=== PATIENT | female | born 1990 | race Caucasian/White ===

== ENCOUNTER 2016-06-01 21:38 | Emergency (ER) | payer OTHER ==
--- NOTE | 2016-06-01 23:39 | ED ORDER SUMMARY ---
..... Patient: EMELYN MISHRA OrderSheet [facility] VisitID: [id number] [address] [place] [address] 25y, F Registration Date/Time: 06/01/2016 ORDER SHEET Weight: 72.5 kg (stated) Allergies: None GENERAL ORDERS: Ankle 3 or 4V Right Urgent (23:38 06/01/2016 Lucía P.A.-C) (Cancelled: Other23:38 EKsilaslegeneva P.A.-C) Splint (LE) (Right) (BOOT) (23:40 06/01/2016 Lucía P.A.-C) (23:51 Becca ER Red Lead Burner) MEDICATION ORDERS: IV FLUIDS: ORDER SHEET NOTES: [Electronically signed by Jaye Archuleta P.A.-C (00:49 06/02/2016)] [Electronically signed by Jer Crystal R.N. (01:39 06/02/2016)] [Electronically locked/signed by Jer Crystal R.N. (01:39 06/02/2016)]
--- NOTE | 2016-06-01 23:39 | ED ORDER SUMMARY ---
..... Patient: EMELYN MISHRA OrderSheet [facility] VisitID: [id number] [address] [place] [address] 25y, F Registration Date/Time: 06/01/2016 ORDER SHEET Weight: 72.5 kg (stated) Allergies: None GENERAL ORDERS: Ankle 3 or 4V Right Urgent (23:38 06/01/2016 Lucía P.A.-C) (Cancelled: Other23:38 EKsilaslegeneva P.A.-C) Splint (LE) (Right) (BOOT) (23:40 06/01/2016 Lucía P.A.-C) (23:51 Becca ER Compressor Repairer) MEDICATION ORDERS: IV FLUIDS: ORDER SHEET NOTES: [Electronically signed by Jaye Archuleta P.A.-C (00:49 06/02/2016)] [Electronically signed by Jer Crystal R.N. (01:39 06/02/2016)] [Electronically locked/signed by Jer Crystal R.N. (01:39 06/02/2016)]
--- NOTE | 2016-06-01 23:39 | ED NURSING NOTES ---
Clinical Report - Nurses [facility] [place] [address] 06/01/2016 21:40 [id number] Triage time 22:17. Chief Complaint: INJURY TO RIGHT ANKLE. --22:22 Saniya Freitas R.N. Weight: 72.5 kg stated. Height/Length: 64 inches. BMI: 27.5. --22:21 Saniya Freitas R.N. Medications 1 Oral, qday. --22:21 Saniya Freitas R.N. Allergies None. --00:18 Jer Crystal R.N. History Arrived by private vehicle. Historian: patient. Accompanied by spouse. This occurred today. Occurred ([place] Mechanism of injury: sustained an external rotation injury while walking. She has had trouble walking. PAST MEDICAL HX: Tetanus status: up-to-date. Immunizations: up-to-date. Currently : 22 weeks. In 2nd trimester. SOCIAL HX: Never smoker. No alcohol use or drug use. --22:22 Saniya Freitas R.N. PHYSICAL ASSESSMENT CVS: Pulses: right dorsalis pedis 3+. EXTREMITIES: Limited ROM present (due to pain). Capillary refill is less than 2 seconds in the extremities. Extremity pulses are within normal limits. She was unable to bear weight. (able to bear weight with pain). Neuro-vascular status intact to the extremity. Right ankle: tenderness and swelling (+pedal pulse marked). SKIN: Skin intact. Skin is warm and dry. --23:35 Jer Crystal R.N. To room via wheelchair. Patient gowned. GENERAL / NEURO / PSYCH: Oriented X 4. Alert. --23:35 Jer Crystal R.N. NURSING PROGRESS NOTES ( lunar boot applied to right foot). --00:09 Shaggy Pérez, ER Data Quality Consultant ( allergies not addressed during triage- Meri copeland who did the triage still in dept and reports no allergies-). --00:19 Jer Crystal R.N. DISPOSITION / DISCHARGE Departure time: 00:09. Condition at departure: improved. No learning barriers present. Discharge instructions provided and reviewed with the patient. Reviewed medication(s). Patient verbalized understanding. Written instructions provided in Khmer. The patient was discharged by the physician shop assistant. She was discharged home and accompanied by spouse. She left the Emergency Department ambulatory and via private vehicle. Spouse driving. --00:13 Jer Crystal R.N. 00:12 06/02/16. BP: 114/74. HR: 76. RR: 17. O2 saturation: 100%. Temp: 98.1 F. Pain level now: 05/22. --00:13 Jer Crystal R.N. Locked/Released at 06/02/2016 1:39 by Jer Crystal R.N.
--- NOTE | 2016-06-01 23:39 | ED CLINICAL REPORT ---
Clinical Report - Physicians/Mid Levels [facility] [address] [place] [address] 06/01/2016 21:40 Patient: EMELYN MISHRA Time Seen: 2340. Arrived- By private vehicle. Historian- patient. HISTORY OF PRESENT ILLNESS Chief Complaint: Injury to the right ankle. The injury happened today. The patient sustained a twisting injury. Occurred at home. (She presents to the emergency department, with a twisting ankle injury which or purpura throughout, she has been ambulatory since him pain with movement, however. Is improved. She reports being currently. Denies any to her abdomen. Denies head injury. 2nd trimester .). REVIEW OF SYSTEMS No tingling. She has no pain on weight bearing. All systems otherwise negative, except as recorded above. PAST HISTORY The patient has not had a prior injury to the same area. Problems: . Medications: 1 Oral, qday. Allergies: None. SOCIAL HISTORY Never smoker. No alcohol use or drug use. PHYSICAL EXAM Vital Signs: 06/02/2016 00:12 BP: 114/74. HR: 76. RR: 17. O2 saturation: 100%. Temp: 98.1 F. Pain level now: 4/10. Appearance: Alert. Head: Head atraumatic. ENT: Ears normal. Nose normal. CVS: Normal heart rate and rhythm. Heart sounds normal. Respiratory: No respiratory distress. Breath sounds normal. No decreased air movement or chest wall injury. Abdomen: No visible injury. Soft. Skin: Skin intact. Skin warm. Extremities: Foot/ankle soft-tissue tenderness. Right posterior ankle. No tenderness or swelling. Right lateral ankle: mild tenderness and swelling of the lateral ligaments. No ecchymosis or foreign body. No limitation in ROM. [place] ANKLE RULES: There is no bony tenderness at the posterior edge or tip of the lateral malleolus or medial malleolus or The patient is able to bear weight (at least four steps) immediately after injury or in the E.D. No foot injury. Gait: No limping gait. Neuro, Vascular and Tendons: Vascular status intact. Motor intact. Neuro: Oriented X 3. PROGRESS AND PROCEDURES PROCEDURES (R. ankle boot: ns intact post application). Course of Care: Negative Vaibhav Zelaya. Patient able to ambulate with multiple steps, discussed option for radiology, will alternative the time, although I cannot guarantee her percent no fracture, this is minimal possibility that she is able to ambulate, has good range of motion, flexion and good strength. Twisting force injury. Patient is stable. Patient/family counseled. Disposition: Discharged. CLINICAL IMPRESSION Sprain of the tibiofibular ligament of the left ankle. INSTRUCTIONS Apply ice. Elevate affected areas above chest level. You may walk and bear weight as tolerated. OTC Medications: Motrin IB 200 mg (available over the counter): take 4 orally every 8 hours for 5 days, as needed for pain Follow-up: Follow up with your doctor in eight days. Follow-up with: Chris Nagel DPM, Podiatry, , [facility], [address] [place] [address], [address] [address] Follow up in eight days. (Electronically signed by Jaye Archuleta P.A.-C 06/02/2016 0:49)
--- NOTE | 2016-06-01 23:39 | ED CLINICAL REPORT ---
Clinical Report - Physicians/Mid Levels [facility] [address] [place] [address] 06/01/2016 21:40 Patient: EMELYN MISHRA Time Seen: 2340. Arrived- By private vehicle. Historian- patient. HISTORY OF PRESENT ILLNESS Chief Complaint: Injury to the right ankle. The injury happened today. The patient sustained a twisting injury. Occurred at home. (She presents to the emergency department, with a twisting ankle injury which or purpura throughout, she has been ambulatory since him pain with movement, however. Is improved. She reports being currently. Denies any to her abdomen. Denies head injury. 2nd trimester .). REVIEW OF SYSTEMS No tingling. She has no pain on weight bearing. All systems otherwise negative, except as recorded above. PAST HISTORY The patient has not had a prior injury to the same area. Problems: . Medications: 1 Oral, qday. Allergies: None. SOCIAL HISTORY Never smoker. No alcohol use or drug use. PHYSICAL EXAM Vital Signs: 06/02/2016 00:12 BP: 114/74. HR: 76. RR: 17. O2 saturation: 100%. Temp: 98.1 F. Pain level now: 4/10. Appearance: Alert. Head: Head atraumatic. ENT: Ears normal. Nose normal. CVS: Normal heart rate and rhythm. Heart sounds normal. Respiratory: No respiratory distress. Breath sounds normal. No decreased air movement or chest wall injury. Abdomen: No visible injury. Soft. Skin: Skin intact. Skin warm. Extremities: Foot/ankle soft-tissue tenderness. Right posterior ankle. No tenderness or swelling. Right lateral ankle: mild tenderness and swelling of the lateral ligaments. No ecchymosis or foreign body. No limitation in ROM. [place] ANKLE RULES: There is no bony tenderness at the posterior edge or tip of the lateral malleolus or medial malleolus or The patient is able to bear weight (at least four steps) immediately after injury or in the E.D. No foot injury. Gait: No limping gait. Neuro, Vascular and Tendons: Vascular status intact. Motor intact. Neuro: Oriented X 3. PROGRESS AND PROCEDURES PROCEDURES (R. ankle boot: ns intact post application). Course of Care: Negative Vaibhav Zelaya. Patient able to ambulate with multiple steps, discussed option for radiology, will alternative the time, although I cannot guarantee her percent no fracture, this is minimal possibility that she is able to ambulate, has good range of motion, flexion and good strength. Twisting force injury. Patient is stable. Patient/family counseled. Disposition: Discharged. CLINICAL IMPRESSION Sprain of the tibiofibular ligament of the left ankle. INSTRUCTIONS Apply ice. Elevate affected areas above chest level. You may walk and bear weight as tolerated. OTC Medications: Motrin IB 200 mg (available over the counter): take 4 orally every 8 hours for 5 days, as needed for pain Follow-up: Follow up with your doctor in eight days. Follow-up with: Chris Nagel DPM, Podiatry, , [facility], [address] [place] [address], [address] [address] Follow up in eight days. (Electronically signed by Jaye Archuleta P.A.-C 06/02/2016 0:49)
--- NOTE | 2016-06-01 23:39 | ED NURSING NOTES ---
Clinical Report - Nurses Located Within [facility] [place] [address] 06/01/2016 21:40 [id number] Triage time 22:17. Chief Complaint: INJURY TO RIGHT ANKLE. --22:22 Saniya Freitas R.N. Weight: 72.5 kg stated. Height/Length: 64 inches. BMI: 27.5. --22:21 Saniya Freitas R.N. Medications 1 Oral, qday. --22:21 Saniya Freitas R.N. Allergies None. --00:18 Jer Crystal R.N. History Arrived by private vehicle. Historian: patient. Accompanied by spouse. This occurred today. Occurred ([place] Mechanism of injury: sustained an external rotation injury while walking. She has had trouble walking. PAST MEDICAL HX: Tetanus status: up-to-date. Immunizations: up-to-date. Currently : 22 weeks. In 2nd trimester. SOCIAL HX: Never smoker. No alcohol use or drug use. --22:22 Saniya Freitas R.N. PHYSICAL ASSESSMENT CVS: Pulses: right dorsalis pedis 3+. EXTREMITIES: Limited ROM present (due to pain). Capillary refill is less than 2 seconds in the extremities. Extremity pulses are within normal limits. She was unable to bear weight. (able to bear weight with pain). Neuro-vascular status intact to the extremity. Right ankle: tenderness and swelling (+pedal pulse marked). SKIN: Skin intact. Skin is warm and dry. --23:35 Jer Crystal R.N. To room via wheelchair. Patient gowned. GENERAL / NEURO / PSYCH: Oriented X 4. Alert. --23:35 Jer Crystal R.N. NURSING PROGRESS NOTES ( lunar boot applied to right foot). --00:09 Shaggy Pérez, ER Repacker ( allergies not addressed during triage- Meri copeland who did the triage still in dept and reports no allergies-). --00:19 Jer Crystal R.N. DISPOSITION / DISCHARGE Departure time: 00:09. Condition at departure: improved. No learning barriers present. Discharge instructions provided and reviewed with the patient. Reviewed medication(s). Patient verbalized understanding. Written instructions provided in Danish. The patient was discharged by the physician temporary office assistant. She was discharged home and accompanied by spouse. She left the Emergency Department ambulatory and via private vehicle. Spouse driving. --00:13 Jer Crystal R.N. 00:12 06/02/16. BP: 114/74. HR: 76. RR: 17. O2 saturation: 100%. Temp: 98.1 F. Pain level now: 05/22. --00:13 Jer Crystal R.N. Locked/Released at 06/02/2016 1:39 by Jer Crystal R.N.
--- NOTE | 2016-06-02 01:39 | ED MAR SUMMARY ---
..... Medication Administration Record [facility] [address] [place], [place] [id number] Patient: EMELYN MISHRA Visit ID: [id number] 25y, F Weight: 72.5 kg Height/Length: 64 in BMI: 27.5 ALLERGIES: None
--- NOTE | 2016-06-02 01:39 | ED DISCHARGE INSTRUCTIONS ---
Patient: EMELYN MISHRA General Instructions [facility] VisitID: [id number] [address] [place] [address] 25y, F Registration Date/Time: 06/01/2016 Sprain of the tibiofibular ligament of the left ankle. INSTRUCTIONS Apply ice. Elevate affected areas above chest level. You may walk and bear weight as tolerated. OTC Medications: Motrin IB 200 mg (available over the counter): take 4 orally every 8 hours for 5 days, as needed for pain Follow-up: Follow up with your doctor in eight days. Follow-up with: Chris Nagel DPM, Podiatry, , [facility], [address] [place] [address], [address] [address] Follow up in eight days. ADDITIONAL INFORMATION Sprain, Ankle,With X-Ray A sprain is an injury to the ligaments or capsule that holds a joint together. There are no broken bones. Most sprains take from four to six weeks to heal. If the ligament is completely torn (severe sprain), it can take several months to recover. Mild to moderate sprains may be treated with an elastic wrap or an in-shoe splint to provide support and prevent re-injury. A mild sprain may not require any additional support. A severe sprain may require surgery to repair. Home care The following guidelines will help you care for your injury at home: Stay off the injured leg as much as possible until you can walk on it without pain. If you have a lot of pain with walking, crutches or a walker may be prescribed. (These can be rented or purchased at many pharmacies and surgical or orthopedic supply stores). Follow your doctor's advice regarding when to begin bearing weight on that leg. Keep your leg elevated to reduce pain and swelling. When sleeping, place a pillow under the injured leg. When sitting, support the injured leg so it is level with your waist. This is very important during the first 48 hours. Apply an ice pack (ice cubes in a plastic bag, wrapped in a towel) over the injured area for 20 minutes every 12 hours the first day. You can place the ice pack directly over the splint/cast. If you were given a boot, open it to apply the ice pack. Continue with ice packs 34 times a day for the next two days, then as needed for the relief of pain and swelling. You may use acetaminophen or ibuprofen to control pain, unless another pain medicine was prescribed. If you have chronic liver or kidney disease or ever had a stomach ulcer or GI bleeding, talk with your doctor before using these medicines. You may return to sports after healing, when you can run without pain. A sprained ankle is at risk for re-injury during the first six weeks. During that time, protect your ankle with an in-shoe splint that prevents tilting of your ankle from side to side. This is very important if you do active work or play sports during that time. Follow-up care Any X-rays you had today dont show any broken bones, breaks, or fractures. Sometimes fractures dont show up on the first X-ray. Bruises and sprains can sometimes hurt as much as a fracture. These injuries can take time to heal completely. If your symptoms dont improve or they get worse, talk with your doctor. You may need a repeat X-ray. When to seek medical care Get prompt medical attention if any of the following occur: The plaster cast or splint gets wet or soft The fiberglass cast or splint gets wet and does not dry for 24 hours Pain or swelling increases, or redness appears Toes become cold, blue, numb or tingly Re-injure your ankle Ibuprofen Oral tablet What is this medicine? IBUPROFEN (eye BYOO proe fen) is a non-steroidal anti-inflammatory drug (NSAID). It is used for dental pain, fever, headaches or migraines, osteoarthritis, rheumatoid arthritis, or painful monthly periods. It can also relieve minor aches and pains caused by a cold, flu, or sore throat. How should I use this medicine? Take this medicine by mouth with a glass of water. Follow the directions on the prescription label. Take this medicine with food if your stomach gets upset. Try to not lie down for at least 10 minutes after you take the medicine. Take your medicine at regular intervals. Do not take your medicine more often than directed. A special MedGuide will be given to you by the pharmacist with each prescription and refill. Be sure to read this information carefully each time. Talk to your development coach regarding the use of this medicine in children. Special care may be needed. What side effects may I notice from receiving this medicine? Side effects that you should report to your doctor or health resident care provider as soon as possible: allergic reactions like skin rash, itching or hives, swelling of the face, lips, or tongue black or bloody stools, blood in the urine or in vomit breathing problems changes in vision chest pain general ill feeling or flu-like symptoms nausea or vomiting redness, blistering, peeling or loosening of the skin, including inside the mouth slurred speech or weakness on one side of the body stomach pain unexplained weight gain or swelling unusually weak or tired yellowing of eyes or skin Side effects that usually do not require medical attention (report to your doctor or health resident care provider if they continue or are bothersome): constipation or diarrhea dizziness gas or heartburn stomach upset What may interact with this medicine? Do not take this medicine with any of the following medications: cidofovir ketorolac methotrexate pemetrexed This medicine may also interact with the following medications: alcohol aspirin diuretics lithium other drugs for inflammation like prednisone warfarin What if I miss a dose? If you miss a dose, take it as soon as you can. If it is almost time for your next dose, take only that dose. Do not take double or extra doses. Where should I keep my medicine? Keep out of the reach of children. Store at room temperature between 15 and 30 degrees C (59 and 86 degrees F). Keep container tightly closed. Throw away any unused medicine after the expiration date. What should I tell my health care provider before I take this medicine? They need to know if you have any of these conditions: asthma cigarette smoker drink more than 3 alcohol containing drinks a day heart disease or circulation problems such as heart failure or leg edema (fluid retention) high blood pressure kidney disease liver disease stomach bleeding or ulcers an unusual or allergic reaction to ibuprofen, aspirin, other NSAIDS, other medicines, foods, dyes, or preservatives or trying to get breast-feeding What should I watch for while using this medicine? Tell your doctor or healthcare professional if your symptoms do not start to get better or if they get worse. This medicine does not prevent heart attack or stroke. In fact, this medicine may increase the chance of a heart attack or stroke. The chance may increase with longer use of this medicine and in people who have heart disease. If you take aspirin to prevent heart attack or stroke, talk with your doctor or health resident care provider. Do not take other medicines that contain aspirin, ibuprofen, or naproxen with this medicine. Side effects such as stomach upset, nausea, or ulcers may be more likely to occur. Many medicines available without a prescription should not be taken with this medicine. This medicine can cause ulcers and bleeding in the stomach and intestines at any time during treatment. Ulcers and bleeding can happen without warning symptoms and can cause . To reduce your risk, do not smoke cigarettes or drink alcohol while you are taking this medicine. You may get drowsy or dizzy. Do not drive, use machinery, or do anything that needs mental alertness until you know how this medicine affects you. Do not stand or sit up quickly, especially if you are an older patient. This reduces the risk of dizzy or fainting spells. This medicine can cause you to bleed more easily. Try to avoid damage to your teeth and gums when you brush or floss your teeth. You have been given the following additional information: Sprain, Ankle, With X-Ray Ibuprofen Oral tablet You may walk and bear weight as tolerated. (Electronically signed by Jaye Archuleta P.A.-C 06/02/2016 0:49)
--- NOTE | 2016-06-02 01:39 | ED MAR SUMMARY ---
..... Medication Administration Record [facility] [address] [place], [place] [id number] Patient: EMELYN MISHRA Visit ID: [id number] 25y, F Weight: 72.5 kg Height/Length: 64 in BMI: 27.5 ALLERGIES: None
--- NOTE | 2016-06-02 01:39 | ED DISCHARGE INSTRUCTIONS ---
Patient: EMELYN MISHRA General Instructions [facility] VisitID: [id number] [address] [place] [address] 25y, F Registration Date/Time: 06/01/2016 Sprain of the tibiofibular ligament of the left ankle. INSTRUCTIONS Apply ice. Elevate affected areas above chest level. You may walk and bear weight as tolerated. OTC Medications: Motrin IB 200 mg (available over the counter): take 4 orally every 8 hours for 5 days, as needed for pain Follow-up: Follow up with your doctor in eight days. Follow-up with: Chris Nagel DPM, Podiatry, , [facility], [address] [place] [address], [address] [address] Follow up in eight days. ADDITIONAL INFORMATION Sprain, Ankle,With X-Ray A sprain is an injury to the ligaments or capsule that holds a joint together. There are no broken bones. Most sprains take from four to six weeks to heal. If the ligament is completely torn (severe sprain), it can take several months to recover. Mild to moderate sprains may be treated with an elastic wrap or an in-shoe splint to provide support and prevent re-injury. A mild sprain may not require any additional support. A severe sprain may require surgery to repair. Home care The following guidelines will help you care for your injury at home: Stay off the injured leg as much as possible until you can walk on it without pain. If you have a lot of pain with walking, crutches or a walker may be prescribed. (These can be rented or purchased at many pharmacies and surgical or orthopedic supply stores). Follow your doctor's advice regarding when to begin bearing weight on that leg. Keep your leg elevated to reduce pain and swelling. When sleeping, place a pillow under the injured leg. When sitting, support the injured leg so it is level with your waist. This is very important during the first 48 hours. Apply an ice pack (ice cubes in a plastic bag, wrapped in a towel) over the injured area for 20 minutes every 12 hours the first day. You can place the ice pack directly over the splint/cast. If you were given a boot, open it to apply the ice pack. Continue with ice packs 34 times a day for the next two days, then as needed for the relief of pain and swelling. You may use acetaminophen or ibuprofen to control pain, unless another pain medicine was prescribed. If you have chronic liver or kidney disease or ever had a stomach ulcer or GI bleeding, talk with your doctor before using these medicines. You may return to sports after healing, when you can run without pain. A sprained ankle is at risk for re-injury during the first six weeks. During that time, protect your ankle with an in-shoe splint that prevents tilting of your ankle from side to side. This is very important if you do active work or play sports during that time. Follow-up care Any X-rays you had today dont show any broken bones, breaks, or fractures. Sometimes fractures dont show up on the first X-ray. Bruises and sprains can sometimes hurt as much as a fracture. These injuries can take time to heal completely. If your symptoms dont improve or they get worse, talk with your doctor. You may need a repeat X-ray. When to seek medical care Get prompt medical attention if any of the following occur: The plaster cast or splint gets wet or soft The fiberglass cast or splint gets wet and does not dry for 24 hours Pain or swelling increases, or redness appears Toes become cold, blue, numb or tingly Re-injure your ankle Ibuprofen Oral tablet What is this medicine? IBUPROFEN (eye BYOO proe fen) is a non-steroidal anti-inflammatory drug (NSAID). It is used for dental pain, fever, headaches or migraines, osteoarthritis, rheumatoid arthritis, or painful monthly periods. It can also relieve minor aches and pains caused by a cold, flu, or sore throat. How should I use this medicine? Take this medicine by mouth with a glass of water. Follow the directions on the prescription label. Take this medicine with food if your stomach gets upset. Try to not lie down for at least 10 minutes after you take the medicine. Take your medicine at regular intervals. Do not take your medicine more often than directed. A special MedGuide will be given to you by the pharmacist with each prescription and refill. Be sure to read this information carefully each time. Talk to your participant administrator regarding the use of this medicine in children. Special care may be needed. What side effects may I notice from receiving this medicine? Side effects that you should report to your doctor or health manager primary care as soon as possible: allergic reactions like skin rash, itching or hives, swelling of the face, lips, or tongue black or bloody stools, blood in the urine or in vomit breathing problems changes in vision chest pain general ill feeling or flu-like symptoms nausea or vomiting redness, blistering, peeling or loosening of the skin, including inside the mouth slurred speech or weakness on one side of the body stomach pain unexplained weight gain or swelling unusually weak or tired yellowing of eyes or skin Side effects that usually do not require medical attention (report to your doctor or health manager primary care if they continue or are bothersome): constipation or diarrhea dizziness gas or heartburn stomach upset What may interact with this medicine? Do not take this medicine with any of the following medications: cidofovir ketorolac methotrexate pemetrexed This medicine may also interact with the following medications: alcohol aspirin diuretics lithium other drugs for inflammation like prednisone warfarin What if I miss a dose? If you miss a dose, take it as soon as you can. If it is almost time for your next dose, take only that dose. Do not take double or extra doses. Where should I keep my medicine? Keep out of the reach of children. Store at room temperature between 15 and 30 degrees C (59 and 86 degrees F). Keep container tightly closed. Throw away any unused medicine after the expiration date. What should I tell my health care provider before I take this medicine? They need to know if you have any of these conditions: asthma cigarette smoker drink more than 3 alcohol containing drinks a day heart disease or circulation problems such as heart failure or leg edema (fluid retention) high blood pressure kidney disease liver disease stomach bleeding or ulcers an unusual or allergic reaction to ibuprofen, aspirin, other NSAIDS, other medicines, foods, dyes, or preservatives or trying to get breast-feeding What should I watch for while using this medicine? Tell your doctor or healthcare professional if your symptoms do not start to get better or if they get worse. This medicine does not prevent heart attack or stroke. In fact, this medicine may increase the chance of a heart attack or stroke. The chance may increase with longer use of this medicine and in people who have heart disease. If you take aspirin to prevent heart attack or stroke, talk with your doctor or health manager primary care. Do not take other medicines that contain aspirin, ibuprofen, or naproxen with this medicine. Side effects such as stomach upset, nausea, or ulcers may be more likely to occur. Many medicines available without a prescription should not be taken with this medicine. This medicine can cause ulcers and bleeding in the stomach and intestines at any time during treatment. Ulcers and bleeding can happen without warning symptoms and can cause . To reduce your risk, do not smoke cigarettes or drink alcohol while you are taking this medicine. You may get drowsy or dizzy. Do not drive, use machinery, or do anything that needs mental alertness until you know how this medicine affects you. Do not stand or sit up quickly, especially if you are an older patient. This reduces the risk of dizzy or fainting spells. This medicine can cause you to bleed more easily. Try to avoid damage to your teeth and gums when you brush or floss your teeth. You have been given the following additional information: Sprain, Ankle, With X-Ray Ibuprofen Oral tablet You may walk and bear weight as tolerated. (Electronically signed by Jaye Archuleta P.A.-C 06/02/2016 0:49)
--- NOTE | 2016-06-02 01:40 | ED MED RECONCILIATION SUMMARY ---
Patient: EMELYN MISHRA Medication Reconciliation Report [facility] VisitID: [id number] [address] [place] [address] 25y, F Registration Date/Time: 06/01/2016 Weight: 72.5 kg Height/Length: 64 in. BMI: 27.5 ALLERGIES: None The patient's Home Medications are listed below: THE FOLLOWING MEDICATIONS NEED TO BE RECONCILED: 1 Oral, qday The source(s) of the original Home Medication information: Not obtained. The following Medications were given to the patient in the Emergency Department: None. The following Medications were prescribed to the patient: Motrin IB 200 mg (available over the counter): take 4 orally every 8 hours for 5 days, as needed for pain -- Jaye Archuleta, P.A.-C
--- NOTE | 2016-06-02 01:40 | ED MED RECONCILIATION SUMMARY ---
Patient: EMELYN MISHRA Medication Reconciliation Report [facility] VisitID: [id number] [address] [place] [address] 25y, F Registration Date/Time: 06/01/2016 Weight: 72.5 kg Height/Length: 64 in. BMI: 27.5 ALLERGIES: None The patient's Home Medications are listed below: THE FOLLOWING MEDICATIONS NEED TO BE RECONCILED: 1 Oral, qday The source(s) of the original Home Medication information: Not obtained. The following Medications were given to the patient in the Emergency Department: None. The following Medications were prescribed to the patient: Motrin IB 200 mg (available over the counter): take 4 orally every 8 hours for 5 days, as needed for pain -- Jaye Archuleta, P.A.-C
== END 2016-06-02 00:09 | disposition home or self-care (01) ==
LOC: ED SRH 21:38
DX: S93.431A Sprain of tibiofibular ligament of right ankle, initial encounter (principal); X50.1XXA Overexertion from prolonged static or awkward postures, initial encounter; Y93.9 Activity, unspecified; Y99.9 Unspecified external cause status; Y92.009 Unspecified place in unspecified non-institutional (private) residence as the place of occurrence of the external cause; Z33.1 Pregnant state, incidental